=== PATIENT | female | born 1990 | race Caucasian/White ===

== ENCOUNTER 2023-07-12 00:51 | Emergency (ER) | payer MEDICAID ==
[2023-07-12 00:59] VITALS: BP 121/61; O2SAT 97
[2023-07-12 02:23] LABS: RAPID STREP SCREEN Negative (Negative)
--- NOTE | 2023-07-12 02:52 | ED Physician Documentation ---
PD HPI HEENT - Stated complaint Stated Complaint: SOA,THROAT PX - Chief complaint Chief Complaint: Heent - History obtained from History obtained from: Patient - Additional information Additional information: HPI from patient. Patient c/o sore throat x 1 week, steadily worsening and associated with increasing odynophagia. Fevers x few days, Tmax ranges from 102-104. This morning she had single episode hemoptysis, although has other had moist cough x few days, as well. Review of Systems Constitutional: reports: Fever, Chills, Myalgias, Sweats Ears: denies: Ear pain Throat: reports: Sore throat Cardiac: denies: Chest pain / pressure Respiratory: reports: Cough, Hemoptysis. denies: Dyspnea, Wheezing GI: reports: Reviewed and negative PD PAST MEDICAL HISTORY - Past Medical History Past Medical History: No - Present Medications Home Medications: Ambulatory Orders Medication Instructions Recorded Confirmed Amox/Clav 875/125 [Augmentin 1 tablet PO Q12H 7 Days #14 tablet 07/12/23 875/125 Tab] Oxycodone HCl/Acetaminophen 1 - 2 each PO Q6H PRN #14 tablet 07/12/23 [Percocet 5-325 mg Tablet] - Allergies Allergies/Adverse Reactions: Allergies Allergy/AdvReac Type Severity Reaction Status Date / Time No Known Drug Allergies Allergy Verified 07/12/23 00:54 PD ED PE NORMAL - Vitals Vital signs reviewed: Yes - General General: Alert and oriented X 3, No acute distress, Well developed/nourished - HEENT HEENT: Ears normal, Moist mucous membranes - Neck Neck: Supple, no meningeal sign - Cardiac Cardiac: RRR, No murmur - Respiratory Respiratory: No respiratory distress, Clear bilaterally PD ED PE EXPANDED - HEENT HEENT: Pharyngeal erythema, Swollen tonsils. No: Tonsillar exudate Results - Vitals Vitals: Oxygen O2 Source Room air - Labs Labs: Laboratory Tests 07/12/23 07/12/23 02:04 02:04 Nasal Adenovirus (PCR) NOT DETECTED Nasal B. parapertussis DNA (PCR) NOT DETECTED Nasal Coronavir 229E PCR NOT DETECTED Nasal Coronavir HKU1 PCR NOT DETECTED Nasal Coronavir NL63 PCR NOT DETECTED Nasal Coronavir OC43 PCR NOT DETECTED Nasal Enterovir/Rhinovir PCR DETECTED A Nasal Influenza B PCR NOT DETECTED Nasal Influenza A PCR NOT DETECTED Nasal Parainfluen 1 PCR NOT DETECTED Nasal Parainfluen 2 PCR NOT DETECTED Nasal Parainfluen 3 PCR NOT DETECTED Nasal Parainfluen 4 PCR NOT DETECTED Nasal RSV (PCR) NOT DETECTED Nasal B.pertussis DNA PCR NOT DETECTED Nasal C.pneumoniae (PCR) NOT DETECTED Stan Human Metapneumo PCR NOT DETECTED Nasal M.pneumoniae (PCR) NOT DETECTED Nasal SARS-CoV-2 (PCR) NOT DETECTED Group A Strep Rapid Negative PD Medical Decision Making - ED course Complexity details: reviewed results, considered differential, d/w patient ED course: Rapid strep negative. Respiratory PCR panel is positive for entero/rhinovirus. Results reviewed with patient. Given the extent of posterior oropharyngeal erythema and swelling, with mild disparity in distribution of edema (right is more swollen than left, raising concern for early abscess), will cover with antibiotic for possible superimposed bacterial pharyngitis; given augmentin in ED with rx for same. Also given 600mg ibuprofen with rx for percocet e- prescribed to her pharmacy of choice. Also given 10mg PO decadron in ED for anti-inflammatory property (for pharyngitis). I am prescribing a short course of short-acting opioid pain medication for this patient. I have reviewed the patients [employer] and no concerning findings were noted. I have discussed that the opioids are for short term therapy only, and will not be refilled from the ED. Departure - Departure Disposition: 01 Home, Self Care Clinical Impression: URI (upper respiratory infection) Qualifiers: URI type: acute pharyngitis Pharyngitis/tonsillitis etiology: unspecified etiology Qualified Code(s): J02.9 - Acute pharyngitis, unspecified Condition: Good Instructions: ED Strep Pharyngitis Poss, ED Pharyngitis Viral Prescriptions: Amox/Clav 875/125 [Augmentin 875/125 Tab] 1 tablet PO Q12H 7 Days #14 tablet Oxycodone HCl/Acetaminophen [Percocet 5-325 mg Tablet] 1 - 2 each PO Q6H PRN #14 tablet PRN Reason: pain Comments: The strep swab of your throat was negative for strep. The nasal swab was positive for rhinovirus. Rhinovirus is considered a "common cold" virus. While this would account for your symptoms, it is unusual to have throat pain to the extent that you are experiencing. As we discussed, it is possible to have a concomitant bacterial infection. The lab will next perform a culture of the throat swab because the rapid strep test does not detect some types of strep that can cause strep throat (these other strep organisms will typically be found on the culture test, but results take 1-2 days). To cover the possibility of a bacterial component of your pharyngitis, you are given the first dose of an antibiotic (Augmentin) in the emergency department, and I have electronically submitted a prescription for a 1-week course of this antibiotic to the [facility] pharmacy in [place]. I have also submitted a prescription for Percocet (opiate/narcotic pain medication). I would encourage you to use ibuprofen for the pain, but you can use the Percocet if the pain is severe or if the pain is not adequately responding to the ibuprofen alone. I am prescribing a short course of narcotic pain medication for you. These are potentially dangerous and addictive medications that should be used carefully. These medications may constipate you. Take an lwlx-znu-[id number] stool softener (docusate) twice daily with plenty of water while taking these medications. If you go 24 hours without a bowel movement, take [id number] miralax, per package instructions. Do not drink or drive while taking these medications. If you received narcotic or sedating medications while in the emergency department, do not drive for 24 hours. Store this medication in a safe, secure place and out of reach of children. It is a violation of federal law to give or sell this medication to another person or to use in a manner other than prescribed. The ED will not refill narcotic prescriptions, including prescriptions lost or stolen. To dispose of unwanted medications: 1. [facility] at [address] in [place] has a medication drop box. They accept prescription medications (in pill form) Sunday through Sunday 9:00 a.m. to 5:00 p.m. 2. The [facility] [employer] accepts prescription medications (in pill form only) for disposal year round. Call for more info rmation. 3. Contact the [facility] for the next [employer] sponsored prescription drug collection event. , [phone], or [phone]; Forms: PCP List Discharge Date/Time: 07/12/23 04:14
[2023-07-12] MEDS ORDERED: CHERRY SYRUP 10 ML UDC PO ONE (03:06)
[2023-07-12] MEDS ORDERED: DEXAMETHASONE 10 MG/ML VIAL PO STA (03:06)
[2023-07-12 03:15] LABS: B. PARAPERTUSSIS- RESP PCR PAN NOT DETECTED; B. PERTUSSIS- RESP PCR PANEL NOT DETECTED; C. PNEUMONIAE- RESP PCR PANEL NOT DETECTED; CORONAVIRUS 229E-RESP PCR NOT DETECTED; CORONAVIRUS HKU1-RESP PCR NOT DETECTED; CORONAVIRUS NL63-RESP PCR NOT DETECTED; CORONAVIRUS OC43-RESP PCR NOT DETECTED; HUMAN METAPNEUMOVIRUS NOT DETECTED; INFLUENZA A- RESP PCR PANEL NOT DETECTED; INFLUENZA B - RESP PCR PANEL NOT DETECTED; M. PNEUMONIAE- RESP PCR PANEL NOT DETECTED; PARAINFLUENZA VIRUS 1 NOT DETECTED; PARAINFLUENZA VIRUS 2 NOT DETECTED; PARAINFLUENZA VIRUS 3 NOT DETECTED; PARAINFLUENZA VIRUS 4 NOT DETECTED; RHINOVIRUS/ENTEROVIRUS DETECTED; RSV- RESP PCR PANEL NOT DETECTED; SARS-CoV-2 -RESP PCR PANEL NOT DETECTED
[2023-07-12] MEDS ORDERED: IBUPROFEN 600 MG TABLET PO STA (03:39)
[2023-07-12] MEDS ORDERED: oxyCODONE/ACET 5/325 Prepack 4 PO STA (03:40)
[2023-07-12] MEDS ORDERED: AMOX/CLAV 875 MG/125 MG TABLET PO STA (03:47)
== END 2023-07-12 04:14 | disposition home or self-care (01) ==
LOC: ED 00:51
DX: J06.9 Acute upper respiratory infection, unspecified (principal); J02.9 Acute pharyngitis, unspecified; Z20.822 Contact with and (suspected) exposure to COVID-19
CPT/HCPCS: 87070; 87430; 87633; 99283; A9270